=== PATIENT | male | born 1975 | race Caucasian/White ===

== ENCOUNTER 2018-08-23 15:09 | Inpatient (IN) | payer OTHER ==
[2018-08-23 15:48] VITALS: BMI 30.8
--- NOTE | 2018-08-23 20:43 | HP ---
CIWA Score - CIWA Score Nausea/Vomitin-No Nausea/No Vomiting Muscle Tremors: 4-Moderate,w/Arms Extend Anxiety: 4-Mod. Anxious/Guarded Agitation: 4-Moderately Restless Paroxysmal Sweats: 3 Orientation: 1-Uncertain about Date Tacttile Disturbances: 0-None Auditory Disturbances: 2-Mild Harshness/Frighten Visual Disturbances: 3-Moderate Sensitivity Headache: 1-Very Mild CIWA-Ar Total Score: 22 Admission ROS S - HPI Chief Complaint: C/O WITHDRAWAL SX'S. SEEKING DETOX TXMENT. Allergies/Adverse Reactions: Allergies Allergy/AdvReac Type Severity Reaction Status Date / Time No Known Allergies Allergy Verified 08/23/18 16:57 History of Present Illness: 42 Y.O. MALE WITH HX/O ALCOHOLISM HERE FOR DETOX. THIS IS HIS FIRST ADMISSION TO [facility]. BUT HE IS KNOWN TO OTHER INPATIENT TXMENT CENTERS. LAST BEING [facility] A FEW MONTHS AGO. HE WAS REFERRED BY I AFTER NOT HAVING ANY BEDS. REPORTS LONGEST CLEAN TIME 10 YEARS. C/O WITHDRAWAL SX'S CIWA 22. LAST DRINK EARLIER THIS MORNING.DENIES PAST/ PRESENT SI/HI/ ATTEMPTS, AVH, DT'S, SEIZURES. DENIES ANY MEDICAL HX TO INCLUDE PSYCH HX.UNDOMICILED. Exam Limitations: No Limitations - Ebola screening Have you traveled outside of the country in the last 21 days: No Have you had contact with anyone from an Ebola affected area: No Have you been sick,other than usual withdrawal symptoms: No - Review of Systems Constitutional: Chills, Malaise, Night Sweats, Changes in sleep EENT: reports: Other (CONTACTS) Respiratory: reports: No Symptoms reported Cardiac: reports: No Symptoms Reported GI: reports: Poor Fluid Intake : reports: No Symptoms Reported Musculoskeletal: reports: No Symptoms Reported Integumentary: reports: Other (BLISTER UNDER FEET) Neuro: reports: No Symptoms reported Endocrine: reports: No Symptoms Reported Hematology: reports: No Symptoms Reported Psychiatric: reports: Anxious, Depressed Other Systems: Reviewed and Negative Patient History - Patient Medical History Hx Anemia: No Hx Asthma: No Hx Chronic Obstructive Pulmonary Disease (COPD): No Hx Cancer: No Hx Cardiac Disorders: No Hx Congestive Heart Failure: No Hx Hypertension: No Hx Hypercholesterolemia: No Hx Pacemaker: No HX Cerebrovascular Accident: No Hx Seizures: No Hx Dementia: No Hx Diabetes: No Hx Gastrointestinal Disorders: No Hx Liver Disease: No Hx Genitourinary Disorders: No Hx Sexually Transmitted Disorders: No Hx Renal Disease (ESRD): No Hx Thyroid Disease: No Hx Human Immunodeficiency Virus (HIV): No Hx Hepatitis C: No Hx Depression: No Hx Suicide Attempt: No Hx Bipolar Disorder: No Hx Schizophrenia: No Other Medical History: DENIES ALL - Patient Surgical History Past Surgical History: No - PPD History Previous Implant?: No Documented Results: Negative w/o proof Implanted On Prior [facility] Admission?: No PPD to be Administered?: Yes - Smoking Cessation Smoking history: Current some day smoker Have you smoked in the past 12 months: Yes Aproximately how many cigarettes per day: 10 Cigars Per Day: 0 Hx Chewing Tobacco Use: No Initiated information on smoking cessation: Yes 'Breaking Loose' booklet given: 08/23/18 - Substance & Tx. History Hx Alcohol Use: Yes Hx Substance Use: Yes Substance Use Type: Alcohol, Cocaine Hx Substance Use Treatment: Yes ([facility]) - Substances Abused Alcohol Route: Oral Frequency: Daily Amount used: 2 PINT VODKA - 2 CASES BEER Age of first use: 12 Date of Last Use: 08/23/18 Crack Route: Smoking Frequency: Daily Amount used: $100 Age of first use: 15 Date of Last Use: 08/23/18 Family Disease History - Family Disease History Family Disease History: Other: Father (ALCOHOLIC FROM CIRROHSIS OF THE LIVER) Admission Physical Exam [facility] - Vital Signs Vital Signs: Vital Signs - 24 hr 08/23/18 15:42 Temperature 98.5 F Pulse Rate 86 Respiratory 21 H Rate Blood Pressure 125/82 - Physical General Appearance: Yes: Appropriately Dressed, Mild Distress, Tremorous, Anxious, Other (FLUSHED FACE) HEENTM: Yes: EOMI, Normocephalic, Normal Voice, SMITHA, Pharynx Normal Respiratory: Yes: Chest Non-Tender, Lungs Clear, Normal Breath Sounds, No Respiratory Distress, No Accessory Muscle Use Neck: Yes: No masses,lesions,Nodules, Supple, Trachea in good position Breast: Yes: Breast Exam Deferred Cardiology: Yes: Regular Rhythm, Regular Rate, S1, S2 Abdominal: Yes: Normal Bowel Sounds, Non Tender, Flat, Soft Genitourinary: Yes: Other (NO C/O) Back: Yes: Normal Inspection Musculoskeletal: Yes: full range of Motion, Gait Steady Extremities: Yes: Normal Capillary Refill, Normal Range of Motion, Non-Tender, Tremors Neurological: Yes: Fully Oriented, Alert, Motor Strength 5/5, Depressed Affect Integumentary: Yes: Other Lymphatic: Yes: Within Normal Limits - Diagnostic (1) Alcohol dependence with uncomplicated withdrawal Current Visit: Yes Status: Acute (2) Cocaine abuse, uncomplicated Current Visit: Yes Status: Acute (3) Nicotine dependence Current Visit: Yes Status: Acute Qualifiers: Nicotine product type: cigarettes Substance use status: uncomplicated Qualified Code(s): F17.210 - Nicotine dependence, cigarettes, uncomplicated (4) Mood disorder, drug-induced Current Visit: Yes Status: Acute Cleared for Admission [facility] - Detox or Rehab [facility] Level of Care: Medically Managed Detox Regimen/Protocol: [facility] for Rehab Admission: No S Breath Alcohol Content Breath Alcohol Content: 0 Urine Drug Screen - Results Drug Screen Negative: No Urine Drug Screen Results: LUI-Cocaine, BAR-Barbiturates, BZO-Benzodiazepines
[2018-08-23] MEDS ORDERED: chlordiazePOXIDE HCL 25 MG CAPSULE PO PRN (21:04)
[2018-08-23] MEDS ORDERED: hydrOXYzine PAMOATE 50 MG CAPSULE (FP) PO PRN (21:04)
[2018-08-23] MEDS ORDERED: MAGNESIUM HYDROX 2400MG/30ML ORAL SUSPENSION 30 ML CUP PO PRN (21:04)
[2018-08-23] MEDS ORDERED: ACETAMINOPHEN 325 MG TABLET (FP) PO PRN (21:04)
[2018-08-23] MEDS ORDERED: IBUPROFEN 400 MG TABLET (FP) PO PRN (21:04)
[2018-08-23] MEDS ORDERED: MAG HYDROX/AL HYDROX/SIMETH 30 ML UNIT-DOSE CUP PO PRN (21:04)
[2018-08-23] MEDS ORDERED: MENTHOL/PHENOL 1 EACH UD MM PRN (21:04)
[2018-08-23] MEDS ORDERED: MAGNESIUM CITRATE 300 ML BOTTLE PO PRN (21:04)
[2018-08-23] MEDS ORDERED: P-EPHED 60MG/TRIPROLIDI 2.5MG TABLET PO PRN (21:04)
[2018-08-23] MEDS ORDERED: LOPERAMIDE HCL 2 MG CAPSULE PO PRN (21:04)
[2018-08-23] MEDS ORDERED: guaiFENesin/D-METHORPHAN HB 10 ML UNIT-DOSE CUPS PO PRN (21:04)
[2018-08-23] MEDS ORDERED: NICOTINE POLACRILEX 2 MG GUM BC PRN (21:04)
[2018-08-23] MEDS ORDERED: BACITRACIN 0.9 GM PACKET TP PRN (21:38)
[2018-08-23] MEDS: THIAMINE HCL 100 MG TABLET (FP) PO SCH (21:57)
[2018-08-23] MEDS: chlordiazePOXIDE HCL 25 MG CAPSULE PO SCH (22:00)
[2018-08-24] MEDS: chlordiazePOXIDE HCL 25 MG CAPSULE PO SCH ×4 (05:28→22:58)
[2018-08-24 10:22] LABS: HEMOGLOBIN 14.2 GM/dL (11.7-16.9); MCH 29.5 pg (25.7-33.7); MCHC 32.9 g/dl (32.0-35.9); MEAN CELL VOLUME 89.5 fl (80-96); MEAN PLT VOLUME 8.3 fl (7.5-11.1); PLATELET COUNT 195 K/MM3 (134-434); RDW 15.3 % (11.9-15.9); WHITE BLOOD COUNT 6.3 K/mm3 (4.0-10.0)
[2018-08-24] MEDS: PRENATAL VITAMINS W/ FOLIC ACID TABLET (FP) PO SCH (10:41)
[2018-08-24] MEDS: NICOTINE 14 MG/24 HOURS TOPICAL PATCH TD SCH (10:43)
[2018-08-24 10:56] LABS: ALBUMIN 3.3 g/dl (3.4-5.0); ALK PHOS 64 U/L (45-117); ANION GAP 6 MMOL/L (8-16); BILIRUBIN,TOTAL 0.4 mg/dL (0.2-1); BLOOD UREA NITROGEN 19 mg/dL (7-18); CALCIUM 8.6 mg/dL (8.5-10.1); CHLORIDE 106 mmol/L (98-107); CO2 29 mmol/L (21-32); CREATININE 1.1 mg/dL (0.55-1.3); GLUCOSE,RANDOM 82 mg/dL (74-106); SGOT/AST 65 U/L (15-37); SGPT/ALT 60 U/L (13-61); SODIUM 141 mmol/L (136-145); TOT PROT 6.6 g/dl (6.4-8.2)
[2018-08-24 11:16] LABS: URINE APPEARANCE TURBID; URINE BILIRUBIN NEGATIVE (<2.0 mg/dL); URINE COLOR YELLOW; URINE GLUCOSE (UA) NEGATIVE (NEGATIVE); URINE KETONE NEGATIVE (NEGATIVE); URINE LEUK ESTERASE NEGATIVE (NEGATIVE); URINE NITRITE NEGATIVE (NEGATIVE); URINE PROTEIN 1+ (NEGATIVE); URINE UROBILINOGEN NEGATIVE mg/dL (0.2-1.0)
[2018-08-24 11:33] LABS: CALCIUM OXALATE CRYSTALS RARE /hpf (NONE SEEN); URINE BACTERIA FEW /hpf (NONE SEEN); URINE MUCUS MANY
--- NOTE | 2018-08-24 12:51 | CONSULT ---
[facility] Psychiatric Consult - Data Date of interview: 08/24/18 Admission source: [facility] Identifying data: First admission to [facility] for this 42 y/o male seeking detoxification treatment for alcohol and cocaine dependence.Patient is single without dependents,homeless,unemployed and supported on food stamps. Substance Abuse History: Confirmed by the patient in this interview.Details in this [facility] report : Smoking history: Current some day smoker. Have you smoked in the past 12 months: Yes. Aproximately how many cigarettes per day: 10. Cigars Per Day: 0. Hx Chewing Tobacco Use: No. Initiated information on smoking cessation: Yes. 'Breaking Loose' booklet given: 08/23/18. - Substance & Tx. History. Hx Alcohol Use: Yes. Hx Substance Use: Yes. Substance Use Type: Alcohol, Cocaine. Hx Substance Use Treatment: Yes ([facility]). - Substances Abused. Alcohol. Route: Oral. Frequency: Daily. Amount used: 2 PINT VODKA - 2 CASES BEER. Age of first use: 12. Date of Last Use: . Crack. Route: Smoking. Frequency: Daily. Amount used: $100. Age of first use: 15. Date of Last Use: 08/23/18 Medical History: Patient endorses good general health. Psychiatric History: Patient denies. Additional Comment: Urine Drug Screen Results: LUI-Cocaine, BAR-Barbiturates, BZO-Benzodiazepines.Noted. Mental Status Exam - Mental Status Exam Alert and Oriented to: Time, Place, Person Cognitive Function: Good Patient Appearance: Disheveled Mood: Withdrawn Affect: Mood Congruent Patient Behavior: Fatigued, Appropriate, Cooperative Speech Pattern: Clear Voice Loudness: Normal Thought Process: Intact, Goal Oriented Thought Disorder: Not Present Hallucinations: Denies Homicidal Ideation: Denies Insight/Judgement: Poor Sleep: Well Appetite: Good Muscle strength/Tone: Normal Gait/Station: Normal Psychiatric Findings - Problem List ([place] 1, 2,3) (1) Alcohol dependence with uncomplicated withdrawal Current Visit: Yes Status: Acute (2) Cocaine abuse, uncomplicated Current Visit: Yes Status: Acute (3) Nicotine dependence Current Visit: Yes Status: Acute Qualifiers: Nicotine product type: cigarettes Substance use status: uncomplicated Qualified Code(s): F17.210 - Nicotine dependence, cigarettes, uncomplicated - Initial Treatment Plan Initial Treatment Plan: Psychoeducation.Sleep hygiene.Detoxification.Observation.
[2018-08-24] MEDS: CYCLOBENZAPRINE HCL 5 MG TABLET PO SCH ×2 (14:08→22:58)
--- NOTE | 2018-08-24 15:46 | PN ---
[facility] CIWA - CIWA Score Nausea/Vomitin-No Nausea/No Vomiting Muscle Tremors: 2 Anxiety: 3 Agitation: 3 Paroxysmal Sweats: 3 Orientation: 0-Oriented Tacttile Disturbances: 1-Very Mild Itch/Numbness Auditory Disturbances: 0-None Visual Disturbances: 0-None Headache: 0-None Present CIWA-Ar Total Score: 12 S Progress Note (SOAP) Subjective: back pain, chills, sweats Objective: 08/24/18 15:47 Vital Signs Temperature 98.3 F 08/24/18 13:25 Pulse Rate 72 08/24/18 13:25 Respiratory Rate 18 08/24/18 13:25 Blood Pressure 108/67 08/24/18 13:25 O2 Sat by Pulse Oximetry (%) Laboratory Last Values WBC 6.3 K/mm3 (4.0-10.0) 08/24/18 08:00 RBC 4.80 M/mm3 (4.00-5.60) 08/24/18 08:00 Hgb 14.2 GM/dL (11.7-16.9) 08/24/18 08:00 Hct 43.0 % (35.4-49) 08/24/18 08:00 MCV 89.5 fl (80-96) 08/24/18 08:00 MCH 29.5 pg (25.7-33.7) 08/24/18 08:00 MCHC 32.9 g/dl (32.0-35.9) 08/24/18 08:00 RDW 15.3 % (11.9-15.9) 08/24/18 08:00 Plt Count 195 K/MM3 (134-434) 08/24/18 08:00 MPV 8.3 fl (7.5-11.1) 08/24/18 08:00 Sodium 141 mmol/L (136-145) 08/24/18 08:00 Potassium 4.0 mmol/L (3.5-5.1) 08/24/18 08:00 Chloride 106 mmol/L (98-107) 08/24/18 08:00 Carbon Dioxide 29 mmol/L (21-32) 08/24/18 08:00 Anion Gap 6 MMOL/L (8-16) L 08/24/18 08:00 BUN 19 mg/dL (7-18) H 08/24/18 08:00 Creatinine 1.1 mg/dL (0.55-1.3) 08/24/18 08:00 Creat Clearance w eGFR > 60 (>60) 08/24/18 08:00 Random Glucose 82 mg/dL (74-106) 08/24/18 08:00 Calcium 8.6 mg/dL (8.5-10.1) 08/24/18 08:00 Total Bilirubin 0.4 mg/dL (0.2-1) 08/24/18 08:00 AST 65 U/L (15-37) H 08/24/18 08:00 ALT 60 U/L (13-61) 08/24/18 08:00 Alkaline Phosphatase 64 U/L (45-117) 08/24/18 08:00 Total Protein 6.6 g/dl (6.4-8.2) 08/24/18 08:00 Albumin 3.3 g/dl (3.4-5.0) L 08/24/18 08:00 Urine Color Yellow 08/23/18 21:20 Urine Appearance Turbid 08/23/18 21:20 Urine pH 5.0 (5.0-8.0) 08/23/18 21:20 Ur Specific [place] 1.030 (1.010-1.035) 08/23/18 21:20 Urine Protein 1+ (NEGATIVE) H 08/23/18 21:20 Urine Glucose (UA) Negative (NEGATIVE) 08/23/18 21:20 Urine Ketones Negative (NEGATIVE) 08/23/18 21:20 Urine Blood Negative (NEGATIVE) 08/23/18 21:20 Urine Nitrite Negative (NEGATIVE) 08/23/18 21:20 Urine Bilirubin Negative (<2.0 mg/dL) 08/23/18 21:20 Urine Urobilinogen Negative mg/dL (0.2-1.0) 08/23/18 21:20 Ur Leukocyte Esterase Negative (NEGATIVE) 08/23/18 21:20 Urine WBC (Auto) 2 /hpf (3-5) 08/23/18 21:20 Urine RBC (Auto) None /hpf (0-3) 08/23/18 21:20 Calcium Oxalate Crystal Rare /hpf (NONE SEEN) 08/23/18 21:20 Urine Bacteria Few /hpf (NONE SEEN) 08/23/18 21:20 Urine Mucus Many 08/23/18 21:20 RPR Titer Nonreactive (NONREACTIVE) 08/24/18 08:00 labs reviewed repeat CMP d/c acetaminophen Aox3 no distress Full ROM ambulating in the unit + back pain Assessment: 08/24/18 15:47 withdrawal sx Plan: increase fluids flexeril PRN continue detox continue to monitor
--- NOTE | 2018-08-24 17:27 | EKG ---
Test Reason : Blood Pressure : / mmHG Vent. Rate : 080 BPM Atrial Rate : 080 BPM P-R Int : 212 ms QRS Dur : 084 ms QT Int : 410 ms P-R-T Axes : 044 051 039 degrees QTc Int : 472 ms SINUS RHYTHM WITH 1ST DEGREE A-V BLOCK OTHERWISE NORMAL ECG NO PREVIOUS ECGS AVAILABLE BASELINE ARTIFACT Confirmed by ONOFRE RICHMOND, TEREZA ([id number]) on 08/24/2018 5:27:40 PM Referred By: Confirmed By:TEREZA ADHIKARI MD
[2018-08-24] MEDS: THIAMINE HCL 100 MG TABLET (FP) PO SCH (22:58)
[2018-08-25] MEDS: chlordiazePOXIDE HCL 25 MG CAPSULE PO SCH ×3 (05:28→17:44)
[2018-08-25] MEDS: CYCLOBENZAPRINE HCL 5 MG TABLET PO SCH ×3 (05:28→22:54)
[2018-08-25] MEDS: PRENATAL VITAMINS W/ FOLIC ACID TABLET (FP) PO SCH (10:46)
[2018-08-25] MEDS: NICOTINE 14 MG/24 HOURS TOPICAL PATCH TD SCH (10:47)
[2018-08-25 11:33] LABS: ALBUMIN 3.3 g/dl (3.4-5.0); ALK PHOS 62 U/L (45-117); ANION GAP 6 MMOL/L (8-16); BILIRUBIN,TOTAL 0.3 mg/dL (0.2-1); BLOOD UREA NITROGEN 12 mg/dL (7-18); CALCIUM 8.5 mg/dL (8.5-10.1); CHLORIDE 105 mmol/L (98-107); CO2 29 mmol/L (21-32); CREATININE 0.8 mg/dL (0.55-1.3); GLUCOSE,RANDOM 83 mg/dL (74-106); SGOT/AST 42 U/L (15-37); SGPT/ALT 53 U/L (13-61); SODIUM 140 mmol/L (136-145); TOT PROT 6.5 g/dl (6.4-8.2)
--- NOTE | 2018-08-25 13:36 | PN ---
S CIWA - CIWA Score Nausea/Vomitin Muscle Tremors: 2 Anxiety: 2 Agitation: 2 Paroxysmal Sweats: 2 Orientation: 0-Oriented Tacttile Disturbances: 0-None Auditory Disturbances: 0-None Visual Disturbances: 0-None Headache: 1-Very Mild CIWA-Ar Total Score: 11 S Progress Note (SOAP) Subjective: Interrupted sleep, back pain and muscle weakness Objective: 08/25/18 13:35 Vital Signs - 8 hr 08/25/18 08/25/18 08/25/18 06:46 09:13 13:22 Temperature 95.9 F L 97.8 F 98.0 F Pulse Rate 60 70 72 Respiratory 18 18 18 Rate Blood Pressure 100/64 106/66 107/73 Laboratory Last Values WBC 6.3 K/mm3 (4.0-10.0) 08/24/18 08:00 RBC 4.80 M/mm3 (4.00-5.60) 08/24/18 08:00 Hgb 14.2 GM/dL (11.7-16.9) 08/24/18 08:00 Hct 43.0 % (35.4-49) 08/24/18 08:00 MCV 89.5 fl (80-96) 08/24/18 08:00 MCH 29.5 pg (25.7-33.7) 08/24/18 08:00 MCHC 32.9 g/dl (32.0-35.9) 08/24/18 08:00 RDW 15.3 % (11.9-15.9) 08/24/18 08:00 Plt Count 195 K/MM3 (134-434) 08/24/18 08:00 MPV 8.3 fl (7.5-11.1) 08/24/18 08:00 Sodium 140 mmol/L (136-145) 08/25/18 07:40 Potassium 4.0 mmol/L (3.5-5.1) 08/25/18 07:40 Chloride 105 mmol/L (98-107) 08/25/18 07:40 Carbon Dioxide 29 mmol/L (21-32) 08/25/18 07:40 Anion Gap 6 MMOL/L (8-16) L 08/25/18 07:40 BUN 12 mg/dL (7-18) 08/25/18 07:40 Creatinine 0.8 mg/dL (0.55-1.3) 08/25/18 07:40 Creat Clearance w eGFR > 60 (>60) 08/25/18 07:40 Random Glucose 83 mg/dL (74-106) 08/25/18 07:40 Calcium 8.5 mg/dL (8.5-10.1) 08/25/18 07:40 Total Bilirubin 0.3 mg/dL (0.2-1) 08/25/18 07:40 AST 42 U/L (15-37) H 08/25/18 07:40 ALT 53 U/L (13-61) 08/25/18 07:40 Alkaline Phosphatase 62 U/L (45-117) 08/25/18 07:40 Total Protein 6.5 g/dl (6.4-8.2) 08/25/18 07:40 Albumin 3.3 g/dl (3.4-5.0) L 08/25/18 07:40 Urine Color Yellow 08/23/18 21:20 Urine Appearance Turbid 08/23/18 21:20 Urine pH 5.0 (5.0-8.0) 08/23/18 21:20 Ur Specific [place] 1.030 (1.010-1.035) 08/23/18 21:20 Urine Protein 1+ (NEGATIVE) H 08/23/18 21:20 Urine Glucose (UA) Negative (NEGATIVE) 08/23/18 21:20 Urine Ketones Negative (NEGATIVE) 08/23/18 21:20 Urine Blood Negative (NEGATIVE) 08/23/18 21:20 Urine Nitrite Negative (NEGATIVE) 08/23/18 21:20 Urine Bilirubin Negative (<2.0 mg/dL) 08/23/18 21:20 Urine Urobilinogen Negative mg/dL (0.2-1.0) 08/23/18 21:20 Ur Leukocyte Esterase Negative (NEGATIVE) 08/23/18 21:20 Urine WBC (Auto) 2 /hpf (3-5) 08/23/18 21:20 Urine RBC (Auto) None /hpf (0-3) 08/23/18 21:20 Calcium Oxalate Crystal Rare /hpf (NONE SEEN) 08/23/18 21:20 Urine Bacteria Few /hpf (NONE SEEN) 08/23/18 21:20 Urine Mucus Many 08/23/18 21:20 RPR Titer Nonreactive (NONREACTIVE) 08/24/18 08:00 Labs noted Assessment: 08/25/18 13:35 Withdrawal sx Plan: Continue detox
[2018-08-25] MEDS: chlordiazePOXIDE 5 MG CAPSULE PO SCH (22:53)
[2018-08-25] MEDS: THIAMINE HCL 100 MG TABLET (FP) PO SCH (22:54)
[2018-08-25] MEDS: MELATONIN 5 MG TABLETS PO PRN (22:54)
[2018-08-26] MEDS: chlordiazePOXIDE 5 MG CAPSULE PO SCH ×3 (05:49→17:07)
[2018-08-26] MEDS: CYCLOBENZAPRINE HCL 5 MG TABLET PO SCH ×3 (05:49→22:16)
[2018-08-26] MEDS: NICOTINE 14 MG/24 HOURS TOPICAL PATCH TD SCH (10:35)
[2018-08-26] MEDS: PRENATAL VITAMINS W/ FOLIC ACID TABLET (FP) PO SCH (10:35)
--- NOTE | 2018-08-26 13:46 | PN ---
[facility] Progress Note (SOAP) Subjective: sleep disturbance sweats Objective: 08/26/18 13:44 A & O x 3 Gait steady Vital Signs Temperature 97.6 F 08/26/18 13:24 Pulse Rate 76 08/26/18 13:24 Respiratory Rate 18 08/26/18 13:24 Blood Pressure 107/70 08/26/18 13:24 O2 Sat by Pulse Oximetry (%) Laboratory Last Values WBC 6.3 K/mm3 (4.0-10.0) 08/24/18 08:00 RBC 4.80 M/mm3 (4.00-5.60) 08/24/18 08:00 Hgb 14.2 GM/dL (11.7-16.9) 08/24/18 08:00 Hct 43.0 % (35.4-49) 08/24/18 08:00 MCV 89.5 fl (80-96) 08/24/18 08:00 MCH 29.5 pg (25.7-33.7) 08/24/18 08:00 MCHC 32.9 g/dl (32.0-35.9) 08/24/18 08:00 RDW 15.3 % (11.9-15.9) 08/24/18 08:00 Plt Count 195 K/MM3 (134-434) 08/24/18 08:00 MPV 8.3 fl (7.5-11.1) 08/24/18 08:00 Sodium 140 mmol/L (136-145) 08/25/18 07:40 Potassium 4.0 mmol/L (3.5-5.1) 08/25/18 07:40 Chloride 105 mmol/L (98-107) 08/25/18 07:40 Carbon Dioxide 29 mmol/L (21-32) 08/25/18 07:40 Anion Gap 6 MMOL/L (8-16) L 08/25/18 07:40 BUN 12 mg/dL (7-18) 08/25/18 07:40 Creatinine 0.8 mg/dL (0.55-1.3) 08/25/18 07:40 Creat Clearance w eGFR > 60 (>60) 08/25/18 07:40 Random Glucose 83 mg/dL (74-106) 08/25/18 07:40 Calcium 8.5 mg/dL (8.5-10.1) 08/25/18 07:40 Total Bilirubin 0.3 mg/dL (0.2-1) 08/25/18 07:40 AST 42 U/L (15-37) H 08/25/18 07:40 ALT 53 U/L (13-61) 08/25/18 07:40 Alkaline Phosphatase 62 U/L (45-117) 08/25/18 07:40 Total Protein 6.5 g/dl (6.4-8.2) 08/25/18 07:40 Albumin 3.3 g/dl (3.4-5.0) L 08/25/18 07:40 Urine Color Yellow 08/23/18 21:20 Urine Appearance Turbid 08/23/18 21:20 Urine pH 5.0 (5.0-8.0) 08/23/18 21:20 Ur Specific [place] 1.030 (1.010-1.035) 08/23/18 21:20 Urine Protein 1+ (NEGATIVE) H 08/23/18 21:20 Urine Glucose (UA) Negative (NEGATIVE) 08/23/18 21:20 Urine Ketones Negative (NEGATIVE) 08/23/18 21:20 Urine Blood Negative (NEGATIVE) 08/23/18 21:20 Urine Nitrite Negative (NEGATIVE) 08/23/18 21:20 Urine Bilirubin Negative (<2.0 mg/dL) 08/23/18 21:20 Urine Urobilinogen Negative mg/dL (0.2-1.0) 08/23/18 21:20 Ur Leukocyte Esterase Negative (NEGATIVE) 08/23/18 21:20 Urine WBC (Auto) 2 /hpf (3-5) 08/23/18 21:20 Urine RBC (Auto) None /hpf (0-3) 08/23/18 21:20 Calcium Oxalate Crystal Rare /hpf (NONE SEEN) 08/23/18 21:20 Urine Bacteria Few /hpf (NONE SEEN) 08/23/18 21:20 Urine Mucus Many 08/23/18 21:20 RPR Titer Nonreactive (NONREACTIVE) 08/24/18 08:00 Assessment: 08/26/18 13:45 withdrawal sx Plan: to continue detox To continue water hydration For discharge on sunday (to allow for safe discharge as [facility] will have bed for him then
[2018-08-26] MEDS: chlordiazePOXIDE HCL 10 MG CAPSULE PO SCH (22:15)
[2018-08-26] MEDS: THIAMINE HCL 100 MG TABLET (FP) PO SCH (22:15)
[2018-08-26] MEDS: MELATONIN 5 MG TABLETS PO PRN (22:16)
[2018-08-27] MEDS: CYCLOBENZAPRINE HCL 5 MG TABLET PO SCH ×3 (05:40→22:24)
[2018-08-27] MEDS: chlordiazePOXIDE HCL 10 MG CAPSULE PO SCH ×3 (05:40→17:26)
[2018-08-27] MEDS: NICOTINE 14 MG/24 HOURS TOPICAL PATCH TD SCH (10:29)
[2018-08-27] MEDS: PRENATAL VITAMINS W/ FOLIC ACID TABLET (FP) PO SCH (10:29)
--- NOTE | 2018-08-27 15:04 | PN ---
[facility] Progress Note (SOAP) Subjective: Anxious, interrupted sleep; patient requesting to stay until tomorrow Objective: 08/27/18 15:00 Last Vital Signs Temp Pulse Resp BP Pulse Ox 97.7 F 74 18 111/62 08/27/18 14:18 08/27/18 14:18 08/27/18 14:18 08/27/18 14:18 Laboratory Tests 08/23/18 08/24/18 08/24/18 21:20 08:00 08:00 WBC 6.3 RBC 4.80 Hgb 14.2 Hct 43.0 MCV 89.5 MCH 29.5 MCHC 32.9 RDW 15.3 Plt Count 195 MPV 8.3 Sodium 141 Potassium 4.0 Chloride 106 Carbon Dioxide 29 Anion Gap 6 L BUN 19 H Creatinine 1.1 Creat Clearance w eGFR > 60 Random Glucose 82 Calcium 8.6 Total Bilirubin 0.4 AST 65 H ALT 60 Alkaline Phosphatase 64 Total Protein 6.6 Albumin 3.3 L Urine Color Yellow Urine Appearance Turbid Urine pH 5.0 Ur Specific [place] 1.030 Urine Protein 1+ H Urine Glucose (UA) Negative Urine Ketones Negative Urine Blood Negative Urine Nitrite Negative Urine Bilirubin Negative Urine Urobilinogen Negative Ur Leukocyte Esterase Negative Urine WBC (Auto) 2 Urine RBC (Auto) None Calcium Oxalate Crystal Rare Urine Bacteria Few Urine Mucus Many RPR Titer 08/24/18 08/25/18 08:00 07:40 WBC RBC Hgb Hct MCV MCH MCHC RDW Plt Count MPV Sodium 140 Potassium 4.0 Chloride 105 Carbon Dioxide 29 Anion Gap 6 L BUN 12 Creatinine 0.8 Creat Clearance w eGFR > 60 Random Glucose 83 Calcium 8.5 Total Bilirubin 0.3 AST 42 H ALT 53 Alkaline Phosphatase 62 Total Protein 6.5 Albumin 3.3 L Urine Color Urine Appearance Urine pH Ur Specific [place] Urine Protein Urine Glucose (UA) Urine Ketones Urine Blood Urine Nitrite Urine Bilirubin Urine Urobilinogen Ur Leukocyte Esterase Urine WBC (Auto) Urine RBC (Auto) Calcium Oxalate Crystal Urine Bacteria Urine Mucus RPR Titer Nonreactive Labs reviewed: UA shows 1+ protein Assessment: 08/27/18 15:02 Withdrawal sxs Noted with proteinuria Plan: Continue detox Proteinuria: encouraged PO water intake, repeat UA
[2018-08-27 21:22] LABS: URINE APPEARANCE CLEAR; URINE BILIRUBIN NEGATIVE (<2.0 mg/dL); URINE COLOR LTYELLOW; URINE GLUCOSE (UA) NEGATIVE (NEGATIVE); URINE KETONE NEGATIVE (NEGATIVE); URINE LEUK ESTERASE NEGATIVE (NEGATIVE); URINE NITRITE NEGATIVE (NEGATIVE); URINE PROTEIN NEGATIVE (NEGATIVE); URINE UROBILINOGEN NEGATIVE mg/dL (0.2-1.0)
[2018-08-27] MEDS: THIAMINE HCL 100 MG TABLET (FP) PO SCH (22:24)
[2018-08-27] MEDS: MELATONIN 5 MG TABLETS PO PRN (22:24)
[2018-08-28] MEDS: CYCLOBENZAPRINE HCL 5 MG TABLET PO SCH (05:48)
[2018-08-28 06:48] VITALS: BP 104/67; PULSE 66; TEMP 97.3
[2018-08-28] MEDS: NICOTINE 14 MG/24 HOURS TOPICAL PATCH TD SCH (10:30)
[2018-08-28] MEDS: PRENATAL VITAMINS W/ FOLIC ACID TABLET (FP) PO SCH (10:30)
--- NOTE | 2018-08-28 15:15 | DS ---
[facility] Detox Discharge Summary Admission Date: 08/23/18 Discharge Date: 08/28/18 - History Present History: Alcohol Dependence, Cocaine Dependence Pertinent Past History: Denies - Physical Exam Results Vital Signs: Vital Signs Temperature 97.3 F L 08/28/18 06:47 Pulse Rate 66 08/28/18 06:47 Respiratory Rate 18 08/28/18 06:47 Blood Pressure 104/67 08/28/18 06:47 O2 Sat by Pulse Oximetry (%) Pertinent Admission Physical Exam Findings: Withdrawal sxs Laboratory Tests 08/23/18 08/24/18 08/24/18 21:20 08:00 08:00 WBC 6.3 RBC 4.80 Hgb 14.2 Hct 43.0 MCV 89.5 MCH 29.5 MCHC 32.9 RDW 15.3 Plt Count 195 MPV 8.3 Sodium 141 Potassium 4.0 Chloride 106 Carbon Dioxide 29 Anion Gap 6 L BUN 19 H Creatinine 1.1 Creat Clearance w eGFR > 60 Random Glucose 82 Calcium 8.6 Total Bilirubin 0.4 AST 65 H ALT 60 Alkaline Phosphatase 64 Total Protein 6.6 Albumin 3.3 L Urine Color Yellow Urine Appearance Turbid Urine pH 5.0 Ur Specific [place] 1.030 Urine Protein 1+ H Urine Glucose (UA) Negative Urine Ketones Negative Urine Blood Negative Urine Nitrite Negative Urine Bilirubin Negative Urine Urobilinogen Negative Ur Leukocyte Esterase Negative Urine WBC (Auto) 2 Urine RBC (Auto) None Calcium Oxalate Crystal Rare Urine Bacteria Few Urine Mucus Many RPR Titer 08/24/18 08/25/18 08/27/18 08:00 07:40 15:37 WBC RBC Hgb Hct MCV MCH MCHC RDW Plt Count MPV Sodium 140 Potassium 4.0 Chloride 105 Carbon Dioxide 29 Anion Gap 6 L BUN 12 Creatinine 0.8 Creat Clearance w eGFR > 60 Random Glucose 83 Calcium 8.5 Total Bilirubin 0.3 AST 42 H ALT 53 Alkaline Phosphatase 62 Total Protein 6.5 Albumin 3.3 L Urine Color Ltyellow Urine Appearance Clear Urine pH 5.0 Ur Specific [place] 1.016 Urine Protein Negative Urine Glucose (UA) Negative Urine Ketones Negative Urine Blood Negative Urine Nitrite Negative Urine Bilirubin Negative Urine Urobilinogen Negative Ur Leukocyte Esterase Negative Urine WBC (Auto) Urine RBC (Auto) Calcium Oxalate Crystal Urine Bacteria Urine Mucus RPR Titer Nonreactive Labs reviewed - Treatment Hospital Course: Detox Protocol Followed, Detoxed Safely, Responded well, Discharged Condition Good - Medication Discharge Medications: Ambulatory Orders NK [No Known Home Medication] 08/23/18 - Diagnosis (1) Proteinuria Status: Resolved (2) Alcohol dependence with uncomplicated withdrawal Status: Acute (3) Cocaine abuse, uncomplicated Status: Chronic (4) Nicotine dependence Status: Chronic Qualifiers: Nicotine product type: cigarettes Substance use status: uncomplicated Qualified Code(s): F17.210 - Nicotine dependence, cigarettes, uncomplicated - AMA Did Patient Leave Against Medical Advice: No (F/U with your PCP within 1-2 weeks )
== END 2018-08-28 10:28 | disposition home or self-care (01) | DRG 774 ==
LOC: YASAS 15:09 → Y3N 17:17
PROC: HZ2ZZZZ Detoxification Services for Substance Abuse Treatment (ICD-10-PCS; principal; 2018-08-23)
DX: F10.230 Alcohol dependence with withdrawal, uncomplicated (principal); F14.10 Cocaine abuse, uncomplicated; F17.210 Nicotine dependence, cigarettes, uncomplicated; F19.24 Other psychoactive substance dependence with psychoactive substance-induced mood disorder; R80.9 Proteinuria, unspecified
CPT/HCPCS: 36415; 80053; 81003; 81015; 85027; 86593; 93005; 93010